=== PATIENT | female | born 1965 | race Caucasian/White ===

== ENCOUNTER 2018-06-18 17:36 | Emergency (ER) | payer SELFPAY ==
[~2018-06-18] VITALS: Ht 167.6 cm; Wt 103.4 kg
[2018-06-18 18:17] VITALS: BP 128/84
[2018-06-18] MEDS ORDERED: ACETAMINOPHEN 325 MG TABLET PO ONE (18:30)
[2018-06-18] MEDS ORDERED: ACETAMINOPHEN ES 500 MG TABLET ONE (18:55)
--- NOTE | 2018-06-18 20:17 | NUR ---
PT REC'D A KNEE IMMOBILIZER AND Crutches were dispensed. Pt instructed on proper use of crutches. Patient able to demonstrate correct use of crutches. Patient discharged to home in stable condition. Written and verbal after care instructions given. Patient verbalizes understanding of instruction and Rx. Pt's friend is at the bedside and is driving pt home. VSS
== END 2018-06-18 20:38 | disposition home or self-care (01) ==
LOC: ER 17:40
DX: M25.562 Pain in left knee (principal); X50.1XXA Overexertion from prolonged static or awkward postures, initial encounter; Y93.89 Activity, other specified; Y92.89 Other specified places as the place of occurrence of the external cause; Y99.8 Other external cause status
CPT/HCPCS: 73564-TC